=== PATIENT | male | born 1955 | race Caucasian/White ===

== ENCOUNTER 2017-01-17 11:03 | Day surgery (SDC) | payer OTHER ==
[~2017-01-17] VITALS: Ht 177.8 cm; Wt 95.2 kg
[~2017-01-17 11:03] MED LIST: 0.9% Sodium Chloride 1,000 ML IV SCH; KTC2C15 TP; Sodium Chloride LOK Flush 10 mL Syringe IV PRN; fentaNYL-PF 50 mCg/mL 2 mL Inj IVPUSH PRN
[2017-01-17] MEDS ORDERED: Propofol 10,000 mCg/mL 20 mL Inj ONE (11:04)
[2017-01-17] MEDS ORDERED: BUPR1FIL3 SL (11:35)
[2017-01-17 11:46] VITALS: BP 129/87; PULSE 64; O2SAT 96
--- NOTE | 2017-01-17 14:16 | PCM.HPANE ---
Patient Data Surgeon Admitting Provider: Attending Provider:Jesse Warren MD Primary Care Physician:Александр Khan ND Other Provider: Reason for Visit Screening Ph Hx Of Colon Polyps Ht/WT & BMI Height (Feet): 5 Height (Inches): 10 Weight (Kilograms): 95.25 Body Mass Index 30.00 Allergies Coded Allergies: No Known Drug Allergies (Verified Allergy, Unknown, 01/16/17) Past Anesthesia History Anesthesia History: Denies:: Abnormal Airway, Anesthesia Reactions, Difficult Intubation, Fam Anesthesia Reaction, Fam Malignant Hypertherm, Malignant Hyperthermia Diabetes History Hx Diabetes?: No MRSA MRSA: No Medications Reported Medications Buprenorphine HCl/Naloxone HCl (Suboxone 8 mg-2 mg Sl Film)1 Each Film1 Each SL DAILY Ref 0 01/17/17 Ketoconazole 15 Gm Cream..g.15 Gm TP 01/16/17 History History of ENT Problems?: No HEENT History: Denies:: Abnormal Airway Difficult Intubation Dysphagia Hearing Problem Denture Type: Partial- Upper Teeth Condition: Within Normal Limits Other HEENT Pertinent History: GLASSES IN BAG Hx of Heart Problems?: No Cardiovascular History: Denies:: AICD Pacemaker Valvular Heart Disease Hx of Respiratory Problem?: No Respiratory History: Denies:: Asthma COPD Chest Surgery Cough Dyspnea Emphysema Hemoptysis Oxygen Administration Pneumonia Pulmonary Embolism Tuberculosis Use of C-PAP Machine Use of Inhalers / NEBS Hx Neurologic Problems?: No Neurological History: Denies:: CVA Hx of GI Problems?: Yes Other History/Comment here today for screening colonscopy Hx of Problems?: No Hx Musculoskeletal Problems?: No Musculoskeletal History: Denies:: Fibromyalgia Joint Replacement Hx of Psycho/Social Problems?: No Psycho Social History: Denies:: Anxiety Hx Depression Hx Surgeries?: Yes (TOE AND DENTAL SUGERY) Hx Any Other Health Problems?: No Other History: Positive for:: Hospitalization History Blood Transfusions: Denies:: Blood Transfusions Hx Diabetes: No Other Pertinent History: history of narcotic abuse with current use of suboxone Hx Alcohol Use: No (ETOH QUIT 5YRS AGO)Hx Substance Use: YesHave You Smoked inLast 12 mo: Yes (1/2 PPD) Stop/Bang Treated for Sleep Apnea?: No Do You Have a CPAP Machine?: No S-Snoring: Do You Snore Loudly: Yes T-Tired: feel tired, fatigued: No O-Obsered: Observed not breath: No P-Blood Pressure: treated: No B- Body Mass Index > 35 kg/m2: Yes A- Age over 50: Yes N- Neck Large Circumference: Yes DEMETRI Category 2: Yes Risk Assessment Category Category 1A: Patient has history of documented sleep apnea, and HAS NOT received any narcotic, sedative or anesthesia administration during this stay. Category 1B: Patient has history of documented sleep apnea, and HAS received any narcotic , sedative or anesthesia administration during this stay Category 2: Patient has SUSPECTED Obstructive Sleep Apnea, and HAS received any narcotic , sedative or anesthesia administration during this stay. Category 3: Patient has SUSPECTED Obstructive Sleep Apnea and HAS NOT received narcotic, sedative or anesthesia administration during this stay. Category 4: Outpatient in Procedural Areas with known sleep apnea or who screen positive for High Risk via the STOP/BANG questionnaire. Exam Exam Vital Signs Vital Signs Date Time Temp Pulse Resp B/P Pulse Ox O2 Delivery O2 Flow Rate FiO2 01/17/17 11:46 36.0 64 129/87 96 Room Air General Appearance: Alert, Oriented X3, Cooperative HEENT/AIRWAY: MP 2 Lungs: Clear to Auscultation, Normal Air Movement Heart: Exam Unremarkable, Regular Rate/Rhythm, No Murmurs/Rubs/Gallops Plan Impression Patient chart reviewed, patient interviewed and anesthestic plan with risks, benefits, and alternatives discussed, and informed consent obtained. ASA Physical Status: ASA3 Severe Disease Anesthetic Plan: TIVA Bene/Risks/Altern/Consents: Yes HP Complete Prior to Induction: Yes Mohit Garcia MD Jan 17, 2017 14:16
--- NOTE | 2017-01-17 14:57 | PCM.ENDCOL ---
Colonoscopy Date of Service: Jan 17, 2017 Physician Jesse Warren MD Pre Procedure Diagnosis: Colon polyp history of Post Procedure Dx & Findings: Polyp hemorrhoids and diverticulosis Procedure Colonoscopy PROCEDURE IN DETAIL: Prep adequate Withdrawal time 17 minutes After unremarkable rectal examination the Olympus video colonoscope was inserted patient's anal canal and was advanced to cecum. Landmarks were identified including the ileocecal valve and appendiceal orifice. Scope was withdrawn systematically. Visualized colonic mucosa showed healthy shiny mucosa with normal healthy-appearing vasculature. In the rectosigmoid area, there were total of 5 polyps. 2 of the polyps are about 3 mm in size. These were removed completely using cold snare. The other 3 were 1 mm in size which were removed completely using cold forceps. Patient has a few sigmoid diverticulosis small. In the rectum retroflexion was done which showed hemorrhoids. Anal canal was inspected carefully on the way out and hemorrhoids noted. Impression Polyp 5 status post complete removal History of polyps Hemorrhoids Recommendation Repeat colonoscopy 3 years Diverticular diet Presedation Assessment Risks and Benefits Informed consent was obtained from the patient after all risks and benefits including but not limited to drug reaction, infection, pain, bleeding, perforation, as well as alternatives were discussed. Patient monitoring Continuous pulse oximetry, cardiac monitoring, blood pressure monitoring, IV access, and oxygen at 2L per nasal cannula. Complications There were no periprocedural complications identified. Post Procedure Plan Post Procedure Recommendations 1. Restrict activities today. 2. Resume normal activities in the morning. 3. Resume medications. 4. Patient informed of normal post procedure side effects as bloating, drowsiness, blood streaking in the stool. 5. average risk CRCS. If colon polyps come back as: -Hyperplastic- can repeat colonoscopy in 10 years -Tubular adenoma- repeat colonoscopy in 5 years -Tubulovillous/villous adenoma- repeat colonoscopy in 3 years -If any dysplasia- return to clinic as soon as possible 6. Please don't hesitate to call me with any questions. Jesse Warren MD Jan 17, 2017 14:57
[2017-01-17 15:00] VITALS: BP 116/71; PULSE 63; RESP 16; O2SAT 96
[2017-01-17 15:08] VITALS: BP 110/70; PULSE 66; RESP 16; O2SAT 97
[2017-01-17 15:14] VITALS: BP 116/82; PULSE 62; RESP 16; O2SAT 98
--- NOTE | 2017-01-24 09:31 | PATH ---
SURGICAL PATHOLOGY Attending Physician:Jesse Warren M.D. CASE STATUS: Signed Out PATIENT NAME: HORTENSIA ESPINOZA PID: [id number] : 1955 DATE COLLECTED:01/17/2017 00:00 SPECIMEN: Colon, Polyp CLINICAL HISTORY: 1). RECTO SIGMOID POLYPS X5 FINAL DIAGNOSIS: 1.RECTOSIGMOID POLYPS: TUBULAR ADENOMA, 1. HYPERPLASTIC POLYPS, 4. ICD10 D12.8 K62.1 GROSS DESCRIPTION: Received one formalin-filled container, labeled with the patient' s name and labeled "rectosigmoid polyps x5". The specimen consists of five portions of tissue which aggregate to 0.5 x 0.5 x 0.4 cm. The specimen is entirely submitted in one cassette. (DC:[id number]) MICRO DESCRIPTION: See diagnosis. ICD-9 CODES: CPT CODES: 1: 70791 Electronically Signed Out Rafaela Hinojosa MD [facility] [address], [place] [address] Technical component performed at [facility], [facility] [address], [address]
== END 2017-01-17 23:59 | disposition home or self-care (01) ==
LOC: END 11:03
PROVIDERS: ATTEND Internal Medicine
DX: Z12.11 Encounter for screening for malignant neoplasm of colon (principal); D12.7 Benign neoplasm of rectosigmoid junction; K63.5 Polyp of colon; Z86.010 Personal history of colon polyps; Z86.19 Personal history of other infectious and parasitic diseases; K74.0 Hepatic fibrosis; Z80.0 Family history of malignant neoplasm of digestive organs; K57.30 Diverticulosis of large intestine without perforation or abscess without bleeding; K64.9 Unspecified hemorrhoids
CPT/HCPCS: 45380; 45385; J7030